=== PATIENT | male | born 1995 | race Caucasian/White ===

== ENCOUNTER → 2024-03-01 16:06 | Outpatient (REF) | payer OTHER, SELFPAY | LOC: PAVMRI 16:06 | PROVIDERS: ATTENDING PHYSICIAN Physician Assistant Medical | DX: R51.9 Headache, unspecified (principal); R20.0 Anesthesia of skin; R55 Syncope and collapse | CPT/HCPCS: 70551 ==

== ENCOUNTER → 2025-01-08 16:26 | Outpatient (REF) | payer OTHER, SELFPAY | LOC: HWRAD 16:26 | PROVIDERS: ATTENDING PHYSICIAN Physician Assistant Medical | DX: M25.562 Pain in left knee (principal) | CPT/HCPCS: 73564 ==

== ENCOUNTER → 2025-01-31 07:08 | Outpatient (REF) | payer OTHER, SELFPAY | LOC: MRI 3T 07:08 | PROVIDERS: ATTENDING PHYSICIAN Physician Assistant Medical | DX: M25.562 Pain in left knee (principal) | CPT/HCPCS: 73721 ==

== ENCOUNTER → 2025-02-25 14:55 | Outpatient (REF) | payer OTHER, SELFPAY | LOC: DHSLP 14:55 | PROVIDERS: ATTENDING PHYSICIAN Internal Medicine; FAMILY PHYSICIAN Physician Assistant Medical | DX: G47.33 Obstructive sleep apnea (adult) (pediatric) (principal) | CPT/HCPCS: 95800 ==